=== PATIENT | female | born 1975 | race Caucasian/White ===

== ENCOUNTER 2016-08-12 04:51 | Emergency (ER) | payer OTHER ==
[~2016-08-12] VITALS: Ht 167.6 cm; Wt 95.3 kg
--- NOTE | 2016-08-12 05:32 | ED INFLUENZA/URI COMPLAINT ---
History of Present Illness General Chief Complaint: General Adult Stated Complaint: SOB; COUGH; CONGESTION Source: patient Exam Limitations: no limitations Vital Signs & Intake/Output Vital Signs & Intake/Output Vital Signs Date Time Temp Pulse Resp B/P Pulse O2 O2 Flow FiO2 Ox Delivery Rate 08/12 0521 88 18 130/81 99 Room Air Allergies Uncoded Allergies: Allergy Other N Med Allergies N Reconcile Medications Albuterol Sulfate (Ventolin Hfa) 90 MCG HFA.AER.AD 2 PUF INH Q4-6 PRN PRN cough/wheeze Amoxicillin/Potassium Clav (Augmentin 875-125 Tablet) 875 MG-125 MG TABLET 1 TAB PO BID bronchitis Benzonatate (Tessalon Perle) 100 MG CAPSULE 1-2 CAP PO TID cough Prednisone 50 MG TABLET 1 TAB PO DAILY bronchitis Triage Note: PT FROM HOME C/O SOB. PT STATES A FEW DAYS AGO SHE BEGAN TO FELL "DOWN" " I WAS SNEEZING, COUGH, RUNNY NOSE AND THEN LAST NIGHT AROUND 2100 I STARTED TO FEEL SOB WITH LOWER BACK PAIN FROM COUGHING". PT IN TRIAGE CONVERSING WITH DAUGHTER IN NO DISTRESS, 02 SAT RA 98%. Triage Nurses Notes Reviewed? yes Onset: Gradual Duration: day(s):, waxing and waning Timing: recent history Severity: mild, moderate Associated Symptoms: cough, nasal congestion, nasal drainage, sinus infection, sore throat, wheezing : No Patient currently breastfeeds: No HPI: 41 yo woman h/o seasonal allergies and smoking, presents with more than 1 week of cough, runny nose, mild wheeze, body aches, "and I'm not getting better." She notes that she has no chest pain, shortness of breath, dizziness. She is otherwise well. Past History Travel History Traveled to [place] past 21 day No Medical History Any Pertinent Medical History? see below for history EENT: allergies Surgical History Surgical History: none Psychosocial History What is your primary language Citizen [place] Tobacco Use: Current Daily Use Daily Tobacco Use Amount/Type: =< 4 Cigarettes daily ETOH Use: denies use Illicit Drug Use: marijuana Family History Hx Contributory? No Review of Systems Review of Systems Constitutional: Reports: no symptoms. EENTM: Reports: no symptoms. Respiratory: Reports: no symptoms. Cardiovascular: Reports: no symptoms. GI: Reports: no symptoms. Genitourinary: Reports: no symptoms. Musculoskeletal: Reports: no symptoms. Skin: Reports: no symptoms. Neurological/Psychological: Reports: no symptoms. Hematologic/Endocrine: Reports: no symptoms. Immunologic/Allergic: Reports: no symptoms. All Other Systems: Reviewed and Negative Physical Exam Physical Exam General Appearance: well developed/nourished, mild distress Head: atraumatic, normal appearance Eyes: Bilateral: normal appearance. Ears, Nose, Throat: nasal congestion, mild erythema in oropharynx Neck: normal inspection, supple, full range of motion Respiratory: chest non-tender, rhonchi Cardiovascular: regular rate/rhythm Gastrointestinal: normal bowel sounds, soft, non-tender, no organomegaly Back: normal inspection, normal range of motion Extremities: normal inspection, normal capillary refill, normal range of motion, no edema Neurologic/Psych: no motor/sensory deficits, awake, alert, oriented x 3 Skin: intact, normal color, warm/dry Core Measures Severe Sepsis Present: No Septic Shock Present: No Progress Differential Diagnosis: sinusitis, bronchitis vs other. Plan of Care: Current Medications Sig/Jayjay Start time Last Medication Dose Stop Time Status Admin Amoxicillin/ 1,000 MG ONCE ONE 08/12 599 UNVr Clavulanate Potassium 08/12 600 (Augmentin) Ibuprofen 800 MG ONCE ONE 08/12 599 UNVr (Motrin) 08/12 600 Prednisone 60 MG ONCE ONE 08/12 599 UNVr 08/12 600 Initial ED EKG: none Departure Departure Disposition: HOME OR SELF CARE Condition: Stable Clinical Impression Primary Impression: Bronchitis Referrals: PATIENT HAS NO PRIMARY CARE DR (PCP/Family) Departure Forms: Customer Survey General Discharge Information Prescriptions: Current Visit Scripts Amoxicillin/Potassium Clav (Augmentin 875-125 Tablet) 1 TAB PO BID #20 TAB Benzonatate (Tessalon Perle) 1-2 CAP PO TID #30 CAP Ref 1 Albuterol Sulfate (Ventolin Hfa) 2 PUF INH Q4-6 PRN PRN cough/wheeze #1 INHAL Prednisone 1 TAB PO DAILY #5 TAB Comments 02 sat normal, pt comfortable in ED... will treat with abx, steroids, albuterol... encouraged close follow up.
[2016-08-12] MEDS ORDERED: TESSALON PERLE100 M1 PO (05:58)
[2016-08-12] MEDS ORDERED: VENTOLIN HFA18 GM INH (05:58)
[2016-08-12] MEDS ORDERED: AUGMENTIN 875-1 EACH PO (05:58)
[2016-08-12] MEDS ORDERED: PREDNISONE50 M1 PO (05:58)
[2016-08-12 06:28] VITALS: BP 128/80
== END 2016-08-12 06:28 ==
LOC: ERH 04:51
DX: J40 Bronchitis, not specified as acute or chronic (principal); Z72.0 Tobacco use
CPT/HCPCS: J3490